=== PATIENT | female | born 2000 | race African-American/Black ===

== ENCOUNTER 2021-01-09 16:40 | Emergency (ER) | payer BC, MEDICAID ==
[~2021-01-09] VITALS: Ht 157.5 cm; Wt 63.5 kg
[2021-01-09] MEDS ORDERED: XOPENEX (16:52)
[2021-01-09] MEDS ORDERED: FAMOTIDINE 20 MG TABLET PO ONE (17:00)
[2021-01-09] MEDS ORDERED: predniSONE 10 MG TABLET PO ONE (17:00)
--- NOTE | 2021-01-09 17:00 | NUR ---
MD at bedside at this time
[2021-01-09] MEDS ORDERED: PRED50TA PO (17:02)
[2021-01-09] MEDS ORDERED: FAMO40TA71 PO (17:02)
[2021-01-09] MEDS ORDERED: FAMOTIDINE 20 MG TABLET ONE (17:10)
[2021-01-09] MEDS ORDERED: predniSONE 10 MG TABLET ONE (17:11)
[2021-01-09] MEDS ORDERED: predniSONE 50 MG TABLET ONE (17:11)
--- NOTE | 2021-01-09 17:12 | NUR ---
Patient discharged to home in stable condition. Ambulate with steady gait. Written and verbal after care instructions given. Patient verbalizes understanding of instructions. Stressed follow up or return to ER for worsening s/s.
[2021-01-09 17:13] VITALS: BP 111/84
== END 2021-01-09 17:13 | disposition home or self-care (01) ==
LOC: ER 16:42
DX: L50.0 Allergic urticaria (principal); J45.909 Unspecified asthma, uncomplicated
CPT/HCPCS: 99283; J7512 ×2; A4663

== ENCOUNTER 2022-04-08 17:17 | Emergency (ER) | payer BC ==
[~2022-04-08] VITALS: Ht 157.5 cm; Wt 59.0 kg
[~2022-04-08 17:17] MED LIST: FAMO40TA71 PO; PRED50TA PO; XOPENEX
[2022-04-08] MEDS ORDERED: LORAZEPAM 0.5 MG TABLET PO ONE (17:30)
[2022-04-08] MEDS ORDERED: FLUT1DIS27 INH (17:36)
[2022-04-08 17:40] LABS: HEMATOCRIT 37.6 % (31.2-41.9); MEAN CORPUSCULAR HEMOGLOBIN 27.9 uug (24.7-32.8); MEAN CORPUSCULAR VOLUME 84.3 fL (75.5-95.3); PLATELET COUNT (AUTO) 254 K/uL (179-408)
[2022-04-08] MEDS ORDERED: LORAZEPAM 1 MG TABLET ONE (17:42)
[2022-04-08 17:52] LABS: CARBON DIOXIDE 26 mmol/L (21-32); CHLORIDE 106 mmol/L (98-107); CREATININE 0.9 mg/dL (0.6-1.3); GLUCOSE 97 mg/dL (74-106); POTASSIUM 3.6 mmol/L (3.5-5.1); UREA NITROGEN, BLOOD 10 mg/dL (7-18)
[2022-04-08 17:57] LABS: ALANINE AMINOTRANSFERASE 16 U/L (14-59); ALKALINE PHOSPHATASE 67 U/L (50-136); ASPARTATE AMINOTRANSFERASE 8 U/L (15-37); BILIRUBIN,DIRECT 0.1 mg/dL (0.0-0.2); BILIRUBIN,TOTAL 0.3 mg/dL (0.2-1.0)
[2022-04-08 18:00] LABS: ACETAMINOPHEN < 2.0 ug/mL (10-30); ETHANOL < 3 MG/DL (0-0)
--- NOTE | 2022-04-08 18:04 | NUR ---
Pt is medically cleared by Dr Waters. Placed a call to [facility] and spoke to Gianfranco Mustafa LCSW.
[2022-04-08 18:31] LABS: *BILIRUBIN,URIN 1+ (NEGATIVE); *BLOOD, URINE NEGATIVE (NEGATIVE); *COLOR,URINE YELLOW (YELLOW); *KETONES,URINE 1+ (NEGATIVE); *UROBILINOGEN,URINE 0.2 E.U./dl (NORMAL); LEUKOCYTE ESTERASE ,URINE NEGATIVE (NEGATIVE); NITRITE, URINE NEGATIVE (NEGATIVE); PH,URINE 5.5 (5.0-8.0); UGLUCOSE NEGATIVE (NEGATIVE)
[2022-04-08 18:33] LABS: *CLARITY,URINE CLOUDY (CLEAR); *URINE HCG, QUAL NEG (NEGATIVE)
[2022-04-08 18:39] LABS: *AMPHETAMINE, URINE NEGATIVE (NEGATIVE); *CANNABINOID, URINE POSITIVE (NEGATIVE); *COCCAINE, URINE NEGATIVE (NEGATIVE); *OPIATE, URINE NEGATIVE (NEGATIVE); *PHENCYCLIDINE SCREEN,URINE NEGATIVE (NEGATIVE)
--- NOTE | 2022-04-08 19:00 | NUR ---
Patient's SO at bedside
--- NOTE | 2022-04-08 19:10 | NUR ---
received report from Tere MARK
[2022-04-08 21:02] LABS: BACTERIA,URINE MODERATE /HPF (NONE SEEN); SQUAMOUS EPITHELIAL CELL,UR MANY /HPF (NONE SEEN)
--- NOTE | 2022-04-08 21:20 | NUR ---
Patient's mother at bedside
--- NOTE | 2022-04-08 21:30 | NUR ---
Called Gianfranco C [employer]. ETA 30mins to an hour
--- NOTE | 2022-04-08 22:50 | NUR ---
As per Gianfranco intake clinician, patient can go home. no need to put on hold
--- NOTE | 2022-04-09 00:04 | NUR ---
Patient discharged to home in stable condition. Written and verbal after care instructions given. Patient verbalizes understanding of instructions. Stressed follow up or return to ER for worsening s/s. Patient is a/ox4, NAD noted. Patient is able to walk with steady gait. Patient is accompanied by SO
[2022-04-09 01:04] VITALS: BP 129/89
== END 2022-04-09 00:04 | disposition home or self-care (01) ==
LOC: ER 17:17
DX: R45.851 Suicidal ideations (principal); T39.312A Poisoning by propionic acid derivatives, intentional self-harm, initial encounter; Y92.049 Unspecified place in boarding-house as the place of occurrence of the external cause; Z20.822 Contact with and (suspected) exposure to COVID-19
CPT/HCPCS: 36415; 84703; 85025; 87086; A4663; G0480